=== PATIENT | female | born 1980 | race Caucasian/White ===

== ENCOUNTER 2019-11-13 21:19 | Emergency (ER) | payer BC ==
[2019-11-13] MEDS ORDERED: Tetracaine HCl/PF 0.5% 4 ML Bottle EYERT ONE (21:23)
[2019-11-13] MEDS ORDERED: Fluorescein 1 MG Ophth Strip EYERT ONE (21:25)
[2019-11-13 21:27] VITALS: BP 135/95; PULSE 91
--- NOTE | 2019-11-13 21:46 | EDM.PDOC ---
ED HPI GENERAL MEDICAL PROBLEM - General Chief Complaint: Eye Problems Stated Complaint: SCRATCHED EYEBALL Time Seen by Provider: 11/13/19 21:42 Source of Information: Reports: Patient History Limitations: Reports: No Limitations - History of Present Illness INITIAL COMMENTS - FREE TEXT/NARRATIVE: was lying down and felt something got into right eye and washed it and took out contact lens. but still feels irritated. Right Eye Pain Score (Numeric/FACES): 7 - Related Data Allergies Allergy/AdvReac Type Severity Reaction Status Date / Time No Known Allergies Allergy Verified 11/13/19 21:31 Home Meds: Home Meds Famotidine 10 mg PO DAILY 09/30/14 [History] Pnv No.95/Ferrous Fum/Folic AC [ Tablet] 1 each PO DAILY 09/30/14 [History] Budesonide [Pulmicort Flexhaler] 1 puff INH DAILY 11/13/19 [History] Levothyroxine [Synthroid] 50 mcg PO ACBREAKFAST 11/13/19 [History] Omeprazole 20 mg PO DAILY 11/13/19 [History] Past Medical History HEENT History: Reports: Allergic Rhinitis, Impaired Vision Cardiovascular History: Reports: None Respiratory History: Reports: None [employer] History: Reports: , Spontaneous Musculoskeletal History: Reports: Back Pain, Chronic Neurological History: Reports: Other (See Below) Other Neuro History: dizziness Psychiatric History: Reports: None Endocrine/Metabolic History: Reports: None Hematologic History: Reports: None Immunologic History: Reports: None - Infectious Disease History Infectious Disease History: Reports: Chicken Pox - Past Surgical History Cardiovascular Surgical History: Reports: None GI Surgical History: Reports: Cholecystectomy Female Surgical History: Reports: Section, D&C Endocrine Surgical History: Reports: None Social & Family History - Family History HEENT: Reports: Impaired Vision Cardiac: Reports: Hypertension Respiratory: Reports: Asthma GI: Reports: Cholelithiasis : Reports: None OBGYN: Reports: None Musculoskeletal: Reports: Arthritis Neurological: Reports: None Psychiatric: Reports: Anxiety Endocrine/Metabolic: Reports: Diabetes, type II, Hypothyroidism Hematologic: Reports: None Oncologic: Reports: Cervix, Colon - Tobacco Use Smoking Status *Q: Never Smoker Second Hand Smoke Exposure: No - Caffeine Use Caffeine Use: Reports: Coffee - Alcohol Use Date of Last Drink: 11/13/19 - Recreational Drug Use Recreational Drug Use: No ED ROS GENERAL - Review of Systems Review Of Systems: Comprehensive ROS is negative, except as noted in HPI. ED EXAM GENERAL W FULL EYE - Physical Exam Exam: See Below Exam Limited By: No Limitations General Appearance: Alert, WD/WN, Mild Distress, Other (discomfort) Eye Exam: Right Eye: Conjunctival Injection, Corneal Abrasion (middle), Bilateral Eye: PERRL (ER @ 5mm) Eyelids: Right: Edema Conjunctiva & Sclera: Right: Injected Cornea Exam: Right: Corneal Abrasion, Examined with Flourescein Extraocular Movements: Bilateral: Intact Pupillary Size: Bilateral: 5 mm Pupillary Reaction: Bilateral: Brisk Anterior Chamber: Bilateral: Normal Appearance Ears: Hearing Grossly Normal Throat/Mouth: Normal Voice, No Airway Compromise Head: Atraumatic Neck: Non-Tender, Full Range of Motion Respiratory/Chest: No Respiratory Distress Cardiovascular: Regular Rate, Rhythm GI/Abdominal: Soft, Non-Tender Neurological: Alert, Oriented, Normal Cognition, Normal Gait, No Motor/Sensory Deficits Psychiatric: Normal Affect, Normal Mood Skin Exam: Warm, Dry, Normal Color Lymphatic: No Adenopathy Course - Vital Signs Last Recorded V/S: Last Vital Signs Temp 36.5 C 11/13/19 21:26 Pulse 91 11/13/19 21:26 Resp 18 11/13/19 21:26 BP 135/95 H 11/13/19 21:26 Pulse Ox 96 11/13/19 21:26 - Orders/Labs/Meds Meds: Medications Discontinued Medications Generic Name Dose Route Start Last Admin Trade Name Bryanq PRN Reason Stop Dose Admin Fluorescein Sodium 1 mg 11/13/19 21:25 11/13/19 21:33 Ful-Thea EYERT 11/13/19 21:26 1 mg ONETIME ONE Administration Tetracaine HCl 1 ml 11/13/19 21:23 11/13/19 21:33 Tetracaine 0.5% Steri-Unit Codi EYERT 11/13/19 21:24 1 dose ASDIRECTED ONE Administration Departure - Departure Time of Disposition: 21:45 Disposition: Home, Self-Care 01 Condition: Good Clinical Impression: Corneal abrasion Qualifiers: Encounter type: initial encounter Laterality: right Qualified Code(s): S05.01XA - Injury of conjunctiva and corneal abrasion without foreign body, right eye, initial encounter - Discharge Information Instructions: Corneal Abrasion, [id number] Additional Instructions: 1) don't rub eye 2) avoid mikhail areas 3) recheck if there is any change or concern Sepsis Event Note (ED) - Evaluation Sepsis Screening Result: No Definite Risk - Focused Exam Vital Signs: Vital Signs Temp Pulse Resp BP Pulse Ox 11/13/19 21:26 36.5 C 91 18 135/95 H 96
== END 2019-11-13 21:49 | disposition home or self-care (01) ==
LOC: DL.ED 21:19
DX: S05.01XA Injury of conjunctiva and corneal abrasion without foreign body, right eye, initial encounter (principal); Z79.899 Other long term (current) drug therapy; X58.XXXA Exposure to other specified factors, initial encounter
CPT/HCPCS: 99283